=== PATIENT | female | born 1985 | race Caucasian/White ===

== ENCOUNTER 2018-07-04 00:47 | Emergency (ER) | payer BC ==
[2018-07-04] MEDS ORDERED: Ondansetron 4 MG Tab.DIS PO ONE (00:50)
--- NOTE | 2018-07-04 01:18 | EDM.PDOC ---
ED HPI GENERAL MEDICAL PROBLEM - General Chief Complaint: Headache Stated Complaint: sinus cold/headache Time Seen by Provider: 07/04/18 01:17 Source of Information: Reports: Patient History Limitations: Reports: No Limitations - History of Present Illness INITIAL COMMENTS - FREE TEXT/NARRATIVE: Tricia is a 33 year old female who presents to the ED with c/o sinus congestion and right sided headache. She reports starting she developed some sinus congestion and mild sore throat. Reports since then she has had sinus congestion. She has been taknig Sudefed, which seemed to be helping. Reports that this afternoon she developed right sided headache in frontal and periorbital area. She reports that pain has increased in severity throughout the evening and she was unable to sleep. Does have some associated nausea. Was given Zofran prior to my arrival to ED and reports nausea has subsided. She does report more sinus drainage from the left side, but not so much the right side. Reports her ears feel full. Has not had any fevers. Does report she has felt mildly flushed at times and then chilled. Mild nonproductive cough. No history of migraines. Does get occasional headache, but usually in frontal area. Denies any chest pain, shortness of breath, abdominal pain, vomiting, diarrhea. Treatments [employer]: Reports: Acetaminophen, NSAIDS Frontal Headache Pain Score (Numeric/FACES): 9 - Related Data Allergies Allergy/AdvReac Type Severity Reaction Status Date / Time No Known Allergies Allergy Verified 07/04/18 00:55 Home Meds: Home Meds Cefuroxime Axetil [Ceftin] 250 mg PO BID 7 Days #14 tablet 07/04/18 [Rx] Escitalopram Oxalate 10 mg PO BEDTIME 07/04/18 [History] Ondansetron [Zofran ODT] 4 mg PO Q6H PRN #15 tab.dis 07/04/18 [Rx] predniSONE [Prednisone] 20 mg PO DAILY 5 Days #5 tablet 07/04/18 [Rx] Past Medical History Cardiovascular History: Reports: Blood Clots/VTE/DVT Musculoskeletal History: Reports: Fracture Neurological History: Reports: Headaches, Chronic Psychiatric History: Reports: Other (See Below) Other Psychiatric History: PMDD - Infectious Disease History Infectious Disease History: Reports: Chicken Pox - Past Surgical History Cardiovascular Surgical History: Reports: Varicose Neurological Surgical History: Reports: None Musculoskeletal Surgical History: Reports: None Social & Family History - Family History Family Medical History: Noncontributory - Tobacco Use Smoking Status *Q: Never Smoker - Caffeine Use Caffeine Use: Reports: Coffee - Recreational Drug Use Recreational Drug Use: No ED ROS ENT - Review of Systems Review Of Systems: ROS reveals no pertinent complaints other than HPI. Constitutional: Denies: Fever, Chills, Malaise, Weakness, Fatigue, Decreased Appetite HEENT: Reports: Ear Pain, Rhinitis, Sinus Problem, Other (eye sensitivty to light ). Denies: Ear Discharge, Eye Discharge, Eye Pain, Hearing Loss, Nose Pain, Throat Pain, Throat Swelling, Vertigo, Vision Change Respiratory: Reports: Cough. Denies: Shortness of Breath, Wheezing, Pleuritic Chest Pain, Sputum Cardiovascular: Denies: Chest Pain, Dyspnea on Exertion, Edema, Lightheadedness , Syncope GI/Abdominal: Reports: Nausea. Denies: Abdominal Pain, Constipation, Diarrhea, Decreased Appetite, Hematochezia, Melena, Vomiting : Reports: No Symptoms Musculoskeletal: Reports: No Symptoms Skin: Reports: No Symptoms Neurological: Reports: Headache. Denies: Numbness, Tingling, Weakness Psychiatric: Reports: No Symptoms Hematologic/Lymphatic: Reports: No Symptoms Immunologic: Reports: No Symptoms ED EXAM, ENT - Physical Exam Exam: See Below Exam Limited By: No Limitations General Appearance: Alert, WD/WN, Moderate Distress Eye Exam: Bilateral Eye: EOMI, Normal Fundi, Normal Inspection, PERRL Ears: Normal External Exam, Normal Canal, Hearing Grossly Normal, Normal TMs Nose: No Blood, Nasal Discharge, Nasal Swelling (L>R) Mouth/Throat: Normal Inspection, Normal Gums, Normal Lips, Normal Oropharynx, Normal Teeth Head: Atraumatic, Normocephalic Neck: Normal Inspection, Supple, Non-Tender, Full Range of Motion Respiratory/Chest: No Respiratory Distress, Lungs Clear, Normal Breath Sounds, No Accessory Muscle Use, Chest Non-Tender Cardiovascular: Normal Peripheral Pulses, Regular Rate, Rhythm, No Edema, No Gallop, No JVD, No Murmur, No Rub GI/Abdominal: Normal Bowel Sounds, Soft, Non-Tender, No Organomegaly, No Distention, No Abnormal Bruit, No Mass Extremities: Normal Inspection, Normal Range of Motion, Non-Tender, No Pedal Edema, Normal Capillary Refill Neurological: Alert, Oriented, CN II-XII Intact, Normal Cognition, Normal Gait, Normal Reflexes, No Motor/Sensory Deficits Psychiatric: Normal Affect, Normal Mood Skin: Warm, Dry, Intact, Normal Color, No Rash Lymphatic: No Adenopathy Course - Vital Signs Last Recorded V/S: Last Vital Signs Temp 97.6 F 07/04/18 00:50 Pulse 97 07/04/18 00:50 Resp 12 07/04/18 00:50 BP 124/85 07/04/18 00:50 Pulse Ox 100 07/04/18 00:50 - Orders/Labs/Meds Orders: Active Orders 24 hr Category Date Time Status Sodium Chloride 0.9% [Normal Saline] 1,000 ml Med 07/04/18 01:28 Active IV .BOLUS cefTRIAXone [Rocephin] Med 07/04/18 01:30 Active 1 gm IVPUSH Q24H Medication Orders Ceftriaxone Sodium (Rocephin) 1 gm IVPUSH Q24H JOSEFINA Last Admin: 07/04/18 01:45 Dose: 1 gm Sodium Chloride (Normal Saline) 1,000 mls @ 999 mls/hr IV .BOLUS ONE Stop: 07/04/18 02:28 Last Admin: 07/04/18 01:46 Dose: 999 mls/hr Labs: Laboratory Tests 07/04/18 07/04/18 Range/Units 01:27 01:27 WBC 9.1 (5.0-10.0) 10^3/uL RBC 4.62 (4.00-5.50) 10^6/uL Hgb 14.6 (12.0-16.0) g/dL Hct 41.7 (37.0-47.0) % MCV 90.3 (82.0-94.0) fL MCH 31.6 (27.0-32.0) pg MCHC 35.0 (33.0-38.0) g/dL RDW Coeff of Chana 12.2 (11.0-15.0) % Plt Count 312 (150-400) 10^3/uL Neut % (Auto) 73.2 (35-85) % Lymph % (Auto) 13.3 (10-55) % [place] % (Auto) 11.3 (0-16) % Eos % (Auto) 2.0 (0-5) % Baso % (Auto) 0.2 (0-3) % Neut # (Auto) 6.64 (1.80-7.00) 10^3/uL Lymph # (Auto) 1.21 (1.00-4.80) 10^3/uL [place] # (Auto) 1.03 H (0.00-0.80) 10^3/uL Eos # (Auto) 0.18 (0.00-0.45) 10^3/uL Baso # (Auto) 0.02 10^3/uL ESR 20 (0-20) mm/hr Sodium 140 (136-145) mEq/L Potassium 3.7 (3.5-5.0) mEq/L Chloride 102 (98-106) mEq/L Carbon Dioxide 27 (21-32) mmol/L BUN 12 (7-18) mg/dL Creatinine 0.8 (0.6-1.0) mg/dL Est Cr Clr Drug Dosing 84.76 mL/min Estimated GFR (MDRD) > 60 (>=60) mL/min Glucose 113 H (75-99) mg/dL Calcium 9.1 (8.4-10.1) mg/dL Total Bilirubin 0.4 (0.0-1.0) mg/dL AST 13 L (15-37) U/L ALT 33 (12-78) U/L Alkaline Phosphatase 91 (46-116) U/L C-Reactive Protein 3.3 H (0.2-0.8) mg/dL Total Protein 8.0 (6.4-8.2) g/dL Albumin 3.7 (3.4-5.0) g/dL Meds: Medications Generic Name Dose Route Start Last Admin Trade Name Freq PRN Reason Stop Dose Admin Ceftriaxone Sodium 1 gm 07/04/18 01:30 07/04/18 01:45 Rocephin IVPUSH 1 gm Q24H JOSEFINA Administration Sodium Chloride 1,000 mls @ 999 mls/hr 07/04/18 01:28 07/04/18 01:46 Normal Saline IV 07/04/18 02:28 999 mls/hr .BOLUS ONE Administration Discontinued Medications Generic Name Dose Route Start Last Admin Trade Name Freq PRN Reason Stop Dose Admin Ketorolac Tromethamine 30 mg 07/04/18 01:28 07/04/18 01:43 Toradol IVPUSH 01/08/19 01:29 30 mg ONETIME ONE Administration Ondansetron HCl 4 mg 07/04/18 00:50 07/04/18 00:55 Zofran Odt PO 07/04/18 00:51 4 mg ONETIME ONE Administration - Re-Assessments/Exams Free Text/Narrative Re-Assessment/Exam: 07/04/18 02:09 Discussed lab results with patient. Labs all normal. CRP mildly elevated at 3.3. Patient reports headache is improved. Nausea resolved. Reports she is feeling much better. Will discharge home. Departure - Departure Time of Disposition: 02:10 Disposition: Home, Self-Care 01 Condition: Good Clinical Impression: Sinus headache Sinusitis, acute Qualifiers: Sinusitis location: unspecified location Recurrence: non-recurrent Qualified Code(s): J01.90 - Acute sinusitis, unspecified - Discharge Information *PRESCRIPTION DRUG MONITORING PROGRAM REVIEWED*: Not Applicable *COPY OF PRESCRIPTION DRUG MONITORING REPORT IN PATIENT AMY: Not Applicable Prescriptions: Cefuroxime Axetil [Ceftin] 250 mg PO BID 7 Days #14 tablet predniSONE [Prednisone] 20 mg PO DAILY 5 Days #5 tablet Instructions: Sinusitis, Adult, [id number] Forms: ED Department Discharge Additional Instructions: Ceftin twice daily x 7 days Prednisone daily x 5 days Zofran as needed for nausea Both can be picked up at pharmacy in the morning Rest and push fluids Continue Sudafed or Mucinex as needed for sinus congestion Alternate Tylenol 1000 mg (no more than 4000 mg in 24 hour period) and ibuprofen 800 mg (no more than 2400 mg in 24 hour period) every three hours as needed Follow up with PCP in clinic if symptoms worsen or do not improve - My Orders Last 24 Hours: My Active Orders 07/04/18 01:28 Sodium Chloride 0.9% [Normal Saline] 1,000 ml IV .BOLUS 07/04/18 01:30 cefTRIAXone [Rocephin] 1 gm IVPUSH Q24H - Assessment/Plan Last 24 Hours: My Active Orders 07/04/18 01:28 Sodium Chloride 0.9% [Normal Saline] 1,000 ml IV .BOLUS 07/04/18 01:30 cefTRIAXone [Rocephin] 1 gm IVPUSH Q24H
[2018-07-04] MEDS ORDERED: Sodium Chloride 0.9% 1,000 ML IV ONE (01:28)
[2018-07-04] MEDS ORDERED: Ketorolac 60 MG/2 ML SDV IVPUSH ONE (01:28)
[2018-07-04] MEDS ORDERED: cefTRIAXone 1 GM Vial IVPUSH SCH (01:30)
[2018-07-04 01:56] LABS: CHLORIDE,CL 102 mEq/L (98-106); SODIUM,NA 140 mEq/L (136-145)
== END 2018-07-04 02:41 | disposition home or self-care (01) ==
LOC: CC.ED 00:47
DX: J01.90 Acute sinusitis, unspecified (principal); R51 Headache
CPT/HCPCS: 36415; 80053; 85025; 85651; 86140; 87804; 96361; 96374; 96375; 99283; A9270-GY; J0696; J1885; J7030